=== PATIENT | female | born 1985 | race Caucasian/White ===

== ENCOUNTER 2017-05-07 13:52 | Outpatient (CLI) | payer MEDICAID ==
[2017-05-07 14:41] VITALS: BP 110/59
== END 2017-05-07 15:10 | disposition home or self-care (01) ==
LOC: LAB 13:52 → FBP 13:55 → LAB 15:10
PROVIDERS: ATTEND Obstetrics & Gynecology
DX: O99.89 Other specified diseases and conditions complicating pregnancy, childbirth and the puerperium (principal); R10.9 Unspecified abdominal pain; R42 Dizziness and giddiness; R50.9 Fever, unspecified; Z3A.24 24 weeks gestation of pregnancy
CPT/HCPCS: 99212

== ENCOUNTER 2017-05-07 15:07 | Emergency (ER) | payer MEDICAID ==
[2017-05-07] MEDS ORDERED: SODIUM CHLORIDE 0.9% 1,000 ML IV ONE (15:30)
--- NOTE | 2017-05-07 15:41 | ED Physician Documentation ---
History of Present Illness - Stated complaint Stated Complaint: FEVER/LIGHT HEADED - Chief complaint Chief Complaint: General - History obtained from History obtained from: Patient - History of Present Illness Timing: Other (This is a at 24 weeks gestation whose been nauseous with several episodes of vomiting over the last few days associated with rhinorrhea and fevers and chills but no body aches. No sick contacts or urinary complaints. No cough or abdominal pain. No diarrhea.) Review of Systems Ten Systems: 10 systems reviewed and negative Constitutional: reports: Fever, Chills, Fatigue. denies: Myalgias Nose: reports: Rhinorrhea / runny nose Throat: denies: Sore throat Respiratory: denies: Dyspnea, Cough GI: reports: Nausea, Vomiting. denies: Abdominal Pain, Diarrhea PD PAST MEDICAL HISTORY - Past Medical History Cardiovascular: Other Respiratory: Other Neuro: Headache/migraine Endocrine/Autoimmune: Other GI: None GLASSIE: None : None Psych: None Musculoskeletal: None Derm: None - Past Surgical History Past Surgical History: Yes /GLASSIE: Dilation and currettage - Present Medications Home Medications: Ambulatory Orders Medication Instructions Recorded Confirmed Pnv95/Ferrous Fumarate/FA 1 each PO DAILY 03/10/16 02/23/17 [ Formula] diphenhydrAMINE [Benadryl] 25 mg PO DAILY 02/23/17 02/23/17 Metoclopramide [Reglan] 10 mg PO Q6H PRN #20 tablet 05/07/17 Nitrofurantoin Monohyd/M-Cryst 1 tab PO BID 5 Days capsule 05/07/17 [Macrobid 100 mg Capsule] - Allergies Allergies/Adverse Reactions: Allergies Allergy/AdvReac Type Severity Reaction Status Date / Time Sulfa (Sulfonamide Allergy Unknown Verified 05/07/17 15:20 Antibiotics) ondansetron HCl * AdvReac Intermediate migraine Verified 05/07/17 15:20 [From Zofran] orajell Allergy Edema Uncoded 05/07/17 15:20 - Social History Does the pt smoke?: No Smoking Status: Never smoker Does the pt drink ETOH?: No Does the pt have substance abuse?: No - Immunizations Immunizations are current?: No Immunizations: TDAP >10years/unknown - POLST Patient has POLST: No PD ED PE NORMAL - Vitals Vital signs reviewed: Yes - General General: Alert and oriented X 3, No acute distress - HEENT HEENT: PERRL, EOMI, Ears normal, Moist mucous membranes, Pharynx benign - Neck Neck: Supple, no meningeal sign, No bony TTP - Cardiac Cardiac: RRR, No murmur - Respiratory Respiratory: No respiratory distress, Clear bilaterally - Abdomen Abdomen: Normal bowel sounds, Soft, Non tender - Back Back: No CVA TTP, No spinal TTP - Derm Derm: Normal color, Warm and dry - Extremities Extremities: No edema, No calf tenderness / cord - Neuro Neuro: Alert and oriented X 3, Normal speech - Psych Psych: Normal mood, Normal affect Results - Vitals Vitals: Vital Signs - 24 hr 05/07/17 15:15 Temperature 36.0 C L Heart Rate 100 Respiratory 18 Rate Blood Pressure 128/55 L O2 Saturation 98 Oxygen O2 Source Room air - Labs Labs: Laboratory Tests 05/07/17 05/07/17 05/07/17 15:39 15:45 16:43 Sodium 134 L Potassium 3.5 Chloride 104 Carbon Dioxide 22 Anion Gap 8.0 BUN 7 Creatinine 0.5 Estimated GFR (MDRD) 142 Glucose 87 Calcium 8.9 Total Bilirubin 0.6 AST 13 ALT 12 Alkaline Phosphatase 53 Total Protein 7.0 Albumin 3.2 Globulin 3.8 Albumin/Globulin Ratio 0.8 L Lipase 12 L Urine Color YELLOW Urine Clarity CLEAR Urine pH 6.0 Ur Specific [place] <=1.005 Urine Protein NEGATIVE Urine Glucose (UA) NEGATIVE Urine Ketones 15 H Urine Occult Blood NEGATIVE Urine Nitrite NEGATIVE Urine Bilirubin NEGATIVE Urine Urobilinogen 0.2 (NORMAL) Ur Leukocyte Esterase SMALL H Urine RBC 0-5 Urine WBC 4-5 Ur Squamous Epith Cells FEW Squamous Urine Bacteria Rare Urine Culture Comments INDICATED Influenza A (Rapid) Negative Influenza B (Rapid) Negative Influenza Types A,B Ag - PD MEDICAL DECISION MAKING - ED course ED course: She presents with what sounds like a viral illness in the setting of . Her vital signs are unremarkable. She was given IV fluids. She does have a UTI, but given the mildness of her symptoms signs on the urinalysis I suspect this is not the source of her illness. This was treated with Rocephin and Macrobid. No antiemetics here because she is driving allergic to Zofran but Reglan for home. Departure - Departure Disposition: Home, Self Care Clinical Impression: UTI (urinary tract infection) Qualifiers: Urinary tract infection type: acute cystitis Hematuria presence: without hematuria Qualified Code(s): N30.00 - Acute cystitis without hematuria Qualifiers: Weeks of gestation: 24 weeks Qualified Code(s): Z3A.24 - 24 weeks gestation of Vomiting Qualifiers: Vomiting type: unspecified Vomiting Intractability: non-intractable Nausea presence: with nausea Qualified Code(s): R11.2 - Nausea with vomiting, unspecified Condition: Good Instructions: ED Nausea Vomiting, ED UTI Cystitis Female Prescriptions: Metoclopramide [Reglan] 10 mg PO Q6H PRN #20 tablet PRN Reason: Nausea / Vomiting Nitrofurantoin Monohyd/M-Cryst [Macrobid 100 mg Capsule] 1 tab PO BID 5 Days capsule Comments: Call your doctor to arrange a follow-up appointment, make the next available appointment. In the interim, return anytime if worse or if new symptoms develop. We will culture your urine, the results should be done in 48-72 hours. If an antibiotic change is necessary we will call you. Return if worse in the meantime, especially if you develop increasing flank pain, fevers, or cannot keep down the medication.
[2017-05-07 15:57] LABS: ALBUMIN 3.2 g/dL (3.2-5.5); ALBUMIN/GLOBULIN RATIO 0.8 (1.0-2.2); BILIRUBIN,TOTAL 0.6 mg/dL (0.2-1.0); CALCIUM 8.9 mg/dL (8.5-10.3); CREATININE 0.5 mg/dL (0.4-1.0)
[2017-05-07 16:56] LABS: BILIRUBIN,URINE NEGATIVE (NEGATIVE); GLUCOSE, URINE (UA) NEGATIVE (NEGATIVE); KETONES,URINE (UA) 15 mg/dL (NEGATIVE); LEUKOCYTE ESTERASE, URINE SMALL (NEGATIVE); NITRITE,URINE NEGATIVE (NEGATIVE); OCCULT BLOOD,URINE NEGATIVE (NEGATIVE); PROTEIN,URINE NEGATIVE (NEGATIVE); UROBILINOGEN,URINE 0.2 (NORMAL) E.U./dL (NORMAL)
[2017-05-07 17:03] LABS: BACTERIA,URINE Rare /HPF (None Seen); CLARITY,URINE CLEAR (CLEAR); RBC,URINE 0-5 /HPF (0-5); SQUAMOUS EPITHELIAL CELL,UR FEW Squamous (<= Few)
[2017-05-07] MEDS ORDERED: cefTRIAXone 1 GM in SODIUM CHLORIDE 0.9% MINIBAG 100 ML IV STA (17:15)
[2017-05-07 18:16] VITALS: BP 124/60
== END 2017-05-07 18:17 | disposition home or self-care (01) ==
LOC: ED 15:07
DX: O23.12 Infections of bladder in pregnancy, second trimester (principal); N30.00 Acute cystitis without hematuria; O21.0 Mild hyperemesis gravidarum; Z3A.24 24 weeks gestation of pregnancy
CPT/HCPCS: 36415; 80053; 81001; 83690; 87086; 87275; 87276; 96361; 96365; 99212; 99283

== ENCOUNTER 2018-08-03 17:53 | Emergency (ER) | payer MEDICAID ==
[2018-08-03 18:14] LABS: BILIRUBIN,URINE NEGATIVE (NEGATIVE); CLARITY,URINE HAZY (CLEAR); GLUCOSE, URINE (UA) NEGATIVE (NEGATIVE); HCG UR QUAL NEGATIVE; KETONES,URINE (UA) NEGATIVE (NEGATIVE); LEUKOCYTE ESTERASE, URINE SMALL (NEGATIVE); NITRITE,URINE NEGATIVE (NEGATIVE); OCCULT BLOOD,URINE LARGE (NEGATIVE); PH,URINE 6.5 PH (5.0-7.5); PROTEIN,URINE 30 mg/dL (NEGATIVE); UROBILINOGEN,URINE 0.2 (NORMAL) E.U./dL (NORMAL)
[2018-08-03 18:23] LABS: BACTERIA,URINE None Seen /HPF (None Seen); RBC,URINE TNTC /HPF (0-5); SQUAMOUS EPITHELIAL CELL,UR NONE SEEN (<= Few)
--- NOTE | 2018-08-03 18:45 | ED Physician Documentation ---
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 : None Psych: None Musculoskeletal: None Derm: None - Past Surgical History Past Surgical History: Yes /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: Dilation and currettage - Present Medications Home Medications: Ambulatory Orders Medication Instructions Recorded Confirmed diphenhydrAMINE [Benadryl] 25 mg PO DAILY 02/23/17 07/19/18 Metoclopramide [Reglan] 10 mg PO Q6H PRN #20 tablet 05/07/17 07/19/18 Ciprofloxacin HCl [Cipro] 500 mg PO BID #14 tablet 08/03/18 - Allergies Allergies/Adverse Reactions: Allergies Allergy/AdvReac Type Severity Reaction Status Date / Time Sulfa (Sulfonamide Allergy Unknown Verified 08/03/18 18:05 Antibiotics) ondansetron HCl * AdvReac Intermediate migraine Verified 08/03/18 18:05 [From Zofran] orajell Allergy Edema Uncoded 08/03/18 18:05 - Social History Does the pt smoke?: No Smoking Status: Never smoker Does the pt drink ETOH?: No Does the pt have substance abuse?: No - Immunizations Immunizations are current?: No Immunizations: TDAP >10years/unknown - POLST Patient has POLST: No PD ED PE NORMAL - Vitals Vital signs reviewed: Yes - General General: Alert and oriented X 3, No acute distress - Abdomen Abdomen: Normal bowel sounds, Soft, Non tender - Back Back: No CVA TTP, No spinal TTP - Neuro Neuro: Alert and oriented X 3, Normal speech Results - Vitals Vitals: Vital Signs - 24 hr 08/03/18 08/03/18 18:03 20:09 Temperature 36.9 C 36.8 C Heart Rate 93 103 H Respiratory 16 16 Rate Blood Pressure 123/70 126/73 O2 Saturation 97 97 Oxygen O2 Source Room air - Labs Labs: Laboratory Tests 08/03/18 08/03/18 08/03/18 18:00 18:55 18:55 WBC 8.2 RBC 4.58 Hgb 12.7 Hct 37.3 MCV 81.4 MCH 27.7 MCHC 34.1 RDW 15.0 Plt Count 239 MPV 7.9 Neut # (Auto) 6.0 Lymph # (Auto) 1.5 Cedar # (Auto) 0.6 Eos # (Auto) 0.1 Baso # (Auto) 0.0 Absolute Nucleated RBC 0.00 Nucleated RBC % 0.0 Sodium 137 Potassium 3.4 L Chloride 104 Carbon Dioxide 25 Anion Gap 8.0 BUN 14 Creatinine 0.6 Estimated GFR (MDRD) 114 Glucose 88 Calcium 9.1 Total Bilirubin 0.8 AST 12 ALT 12 Alkaline Phosphatase 53 Total Protein 7.5 Albumin 4.2 Globulin 3.3 Albumin/Globulin Ratio 1.3 Lipase 28 Urine Color YELLOW Urine Clarity HAZY Urine pH 6.5 Ur Specific [place] 1.025 Urine Protein 30 H Urine Glucose (UA) NEGATIVE Urine Ketones NEGATIVE Urine Occult Blood LARGE H Urine Nitrite NEGATIVE Urine Bilirubin NEGATIVE Urine Urobilinogen 0.2 (NORMAL) Ur Leukocyte Esterase SMALL H Urine RBC TNTC H Urine WBC >25 H Ur Squamous Epith Cells NONE SEEN Urine Bacteria None Seen Ur Microscopic Review INDICATED Urine Culture Comments INDICATED Urine HCG, Qual NEGATIVE - Rads (name of study) Ct a/p Radiology: EMP read contemporaneously (normal) PD MEDICAL DECISION MAKING - ED course ED course: 32-year-old woman with ongoing right flank pain, could be renal colic, but now With more complaints consistent with UTI. Her urinalysis had a lot of blood but also signs of infection so we looked for stone with CT and this was negative And she was treated with Cipro. Departure - Departure Disposition: 01 Home, Self Care Clinical Impression: Pyelonephritis Condition: Good Record reviewed to determine appropriate education?: Yes Instructions: Pyelonephritis Dc Prescriptions: Ciprofloxacin HCl [Cipro] 500 mg PO BID #14 tablet Comments: We will culture your urine, the results should be done in 48-72 hours. If an antibiotic change is necessary we will call you. Return if worse in the meantime, especially if you develop increasing flank pain, fevers, or cannot keep down the medication. Discharge Date/Time: 08/03/18 20:10
[2018-08-03 19:01] LABS: BASOPHILS % (AUTO) 0.6 %; EOSINOPHILS # (AUTO) 0.1 10^3/uL (0.0-0.7); EOSINOPHILS % (AUTO) 1.1 %; HGB - HEMOGLOBIN 12.7 g/dL (12.0-16.0); LYMPHOCYTES # (AUTO) 1.5 10^3/uL (1.5-3.5); MEAN CORPUSCULAR HEMOGLOBIN 27.7 pg (27.0-31.0); MEAN CORPUSCULAR HGB CONC 34.1 g/dL (32.0-36.0); MEAN CORPUSCULAR VOLUME 81.4 fL (81.0-99.0); MEAN PLATELET VOLUME 7.9 fL (7.9-10.8); MONOCYTES # (AUTO) 0.6 10^3/uL (0.0-1.0); MONOCYTES % (AUTO) 7.2 %; NEUTROPHILS % (AUTO) 73.1 %; PLT - PLATELET COUNT 239 10^3/uL (130-450); RED BLOOD COUNT 4.58 10^6/uL (4.20-5.40); WHITE BLOOD COUNT 8.2 x10^3/uL (4.8-10.8)
[2018-08-03 19:28] LABS: ALBUMIN 4.2 g/dL (3.2-5.5); ALBUMIN/GLOBULIN RATIO 1.3 (1.0-2.2); BILIRUBIN,TOTAL 0.8 mg/dL (0.2-1.0); CALCIUM 9.1 mg/dL (8.5-10.3); CREATININE 0.6 mg/dL (0.4-1.0); TOTAL PROTEIN 7.5 g/dL (6.7-8.2)
--- NOTE | 2018-08-03 19:40 | CT Report ---
Reason: r FLANK PAIN HEMATURIA Procedure Date: 08/03/2018 Accession Number: [id number] / [id number] Procedure: CT - Abdomen/Pelvis WO CPT Code: FULL RESULT: EXAM: CT ABDOMEN AND PELVIS (CT KUB) EXAM DATE: 08/03/2018 07:19 PM. CLINICAL HISTORY: R FLANK PAIN HEMATURIA. COMPARISONS: None. TECHNIQUE: Routine helical CT imaging was performed through the abdomen and pelvis without intravenous contrast. Lack of intravenous contrast can at times limit scan sensitivity, particularly for the detection of intraparenchymal and vascular pathology. Reconstructions: Coronal and sagittal. In accordance with CT protocol optimization, one or more of the following dose reduction techniques were utilized for this exam: automated exposure control, adjustment of mA and/or KV based on patient size, or use of iterative reconstructive technique. FINDINGS: ABDOMEN: Lung Bases: Incompletely included lower lungs are grossly clear. Heart size is within normal limits. No basilar effusions. Liver: Unremarkable. Gallbladder/Bile Ducts: Gallbladder is unremarkable. Visualized biliary tree is normal caliber. Spleen: Unremarkable. Pancreas: Unremarkable. Adrenal Glands: Unremarkable. Kidneys: No calculi or hydronephrosis. Peritoneum/Mesentery/Bowel: No free fluid, free air, or collection. No intestinal obstruction or inflammation. The appendix is within normal limits. Lymph nodes: No mesenteric, periportal, or retroperitoneal lymphadenopathy. PELVIS: The bladder is unremarkable for the degree of distention. IUD present within the uterus. No pelvic lymphadenopathy. Retroperitoneum: Abdominal aorta is nonaneurysmal. Bones: No suspicious osseous lesions. IMPRESSION: No acute unenhanced abnormalities. No renal calculi or hydronephrosis. RADIA
[2018-08-03] MEDS ORDERED: CIPROFLOXACIN 250 MG TABLET PO STA (19:58)
[2018-08-03 20:11] VITALS: BP 126/73
== END 2018-08-03 20:10 | disposition home or self-care (01) ==
LOC: ED 17:53
DX: N12 Tubulo-interstitial nephritis, not specified as acute or chronic (principal); Z85.72 Personal history of non-Hodgkin lymphomas
CPT/HCPCS: 36415; 74176; 80053; 81001; 81025; 83690; 85025; 87086; 87181; 99283; A9270; 81003

== ENCOUNTER 2018-08-23 15:11 | Emergency (ER) | payer MEDICAID ==
[2018-08-23 16:16] LABS: BILIRUBIN,URINE NEGATIVE (NEGATIVE); GLUCOSE, URINE (UA) NEGATIVE (NEGATIVE); KETONES,URINE (UA) NEGATIVE (NEGATIVE); LEUKOCYTE ESTERASE, URINE SMALL (NEGATIVE); NITRITE,URINE POSITIVE (NEGATIVE); OCCULT BLOOD,URINE LARGE (NEGATIVE); PROTEIN,URINE 100 mg/dL (NEGATIVE); UROBILINOGEN,URINE 0.2 (NORMAL) E.U./dL (NORMAL)
[2018-08-23 16:19] LABS: CLARITY,URINE CLOUDY (CLEAR); HCG UR QUAL NEGATIVE
[2018-08-23 16:22] LABS: WBC CLUMPS,URINE PRESENT
[2018-08-23 16:23] LABS: BACTERIA,URINE Many /HPF (None Seen); SQUAMOUS EPITHELIAL CELL,UR NONE SEEN (<= Few)
--- NOTE | 2018-08-23 16:28 | ED Physician Documentation ---
History of Present Illness - Stated complaint Stated Complaint: BACK PX - Chief complaint Chief Complaint: UTI - History obtained from History obtained from: Patient - History of Present Illness Timing: How many days ago (several) Pain level max: 8 Pain level now: 8 - Additonal information Additional information: 32-year-old female presents to the emergency department with dysuria for the past several days, now pain up into the left flank. Has had nausea but no vomiting. No fevers. Similar to prior episodes of pyelonephritis. Nothing makes it better or worse. Has not taken anything for this. 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 HEENT: None Psych: None Musculoskeletal: None Derm: None - Past Surgical History Past Surgical History: Yes /SHAFT REPAIRER: Dilation and currettage - Present Medications Home Medications: Ambulatory Orders Medication Instructions Recorded Confirmed Cefdinir 300 mg PO BID #20 capsule 08/23/18 Hydrocodone/Acetaminophen 1 - 2 each PO Q6H PRN #14 tablet 08/23/18 [Hydrocodon-Acetaminophen 5-325] - Allergies Allergies/Adverse Reactions: Allergies Allergy/AdvReac Type Severity Reaction Status Date / Time Sulfa (Sulfonamide Allergy Unknown Verified 08/23/18 15:49 Antibiotics) ondansetron HCl * AdvReac Intermediate migraine Verified 08/23/18 15:49 [From Zofran] orajell Allergy Edema Uncoded 08/03/18 18:05 - Social History Does the pt smoke?: No Smoking Status: Never smoker Does the pt drink ETOH?: No Does the pt have substance abuse?: No - Immunizations Immunizations are current?: Yes Immunizations: TDAP >10years/unknown - POLST Patient has POLST: No PD ED PE NORMAL - Vitals Vital signs reviewed: Yes - General General: Alert and oriented X 3, No acute distress, Well developed/nourished - HEENT HEENT: Moist mucous membranes - Neck Neck: Supple, no meningeal sign - Cardiac Cardiac: RRR, Strong equal pulses - Respiratory Respiratory: No respiratory distress, Clear bilaterally - Abdomen Abdomen: Soft, Non tender, Non distended - Back Back: No spinal TTP, Other (Mild left CVA tenderness) - Derm Derm: Warm and dry - Neuro Neuro: Alert and oriented X 3 - Psych Psych: Normal mood, Normal affect Results - Vitals Vitals: Vital Signs - 24 hr 08/23/18 15:47 Temperature 37 C Heart Rate 106 H Respiratory 18 Rate Blood Pressure 104/57 L O2 Saturation 97 Oxygen O2 Source Room air - Labs Labs: Laboratory Tests 08/23/18 16:00 Urine Color YELLOW Urine Clarity CLOUDY Urine pH 6.0 Ur Specific [place] 1.020 Urine Protein 100 H Urine Glucose (UA) NEGATIVE Urine Ketones NEGATIVE Urine Occult Blood LARGE H Urine Nitrite POSITIVE H Urine Bilirubin NEGATIVE Urine Urobilinogen 0.2 (NORMAL) Ur Leukocyte Esterase SMALL H Urine RBC 11-25 H Urine WBC >25 H Urine WBC Clumps PRESENT Ur Squamous Epith Cells NONE SEEN Urine Bacteria Many H Ur Microscopic Review INDICATED Urine Culture Comments INDICATED Urine HCG, Qual NEGATIVE PD MEDICAL DECISION MAKING - ED course Complexity details: reviewed results, re-evaluated patient, considered differential, d/w patient ED course: 32-year-old female with what appears to be a UTI and likely pyelonephritis. Will place on Cefdinir. Will also place on pain medication for home. We will have her follow-up with her doctor for further evaluation and care. Patient is well-appearing, nontoxic. Patient counseled regarding signs and symptoms for which I believe and urgent re-evaluation would be necessary. Patient with good understanding of and agreement to plan and is comfortable going home at this time This document was made in part using voice recognition software. While efforts are made to proofread this document, sound alike and grammatical errors may occur. Prior microbiology results were reviewed Departure - Departure Disposition: Home, Self Care Clinical Impression: Pyelonephritis Condition: Good Instructions: ED Kidney Infec Female Follow-Up: your,doctor in 3 days if not better [Other] Prescriptions: Cefdinir 300 mg PO BID #20 capsule Hydrocodone/Acetaminophen [Hydrocodon-Acetaminophen 5-325] 1 - 2 each PO Q6H PRN #14 tablet PRN Reason: pain Comments: Take all antibiotics until gone. Return if you worsen. Follow-up with your doctor for further evaluation and care. Do not drink alcohol or drive while on narcotic pain medicine. Note that many narcotic pain relievers also contain tylenol/acetaminophen. Please ensure that your total dose of acetaminophen from all sources does not exceed 3 grams (3000mg) per day. You may constipated on this medication, take a stool softener such as "Colace" twice a day while you are on it. Also recommend a [id number]-prn-[id number] laxative such as senna or MiraLAX any day that you do not have a bowel movement. If you received narcotic pain medication in the emergency department, do not drive or operate machinery for the next 24 hours.
[2018-08-23 16:44] VITALS: BP 138/52
== END 2018-08-23 16:44 | disposition home or self-care (01) ==
LOC: ED 15:11
DX: N12 Tubulo-interstitial nephritis, not specified as acute or chronic (principal)
CPT/HCPCS: 81001; 81003; 81025; 87086; 87181; 99283

== ENCOUNTER 2020-05-24 12:59 | Emergency (ER) | payer MEDICAID ==
--- NOTE | 2020-05-24 14:30 | ED Physician Documentation ---
History of Present Illness - Stated complaint Stated Complaint: L ARM NUMBNESS - Chief complaint Chief Complaint: General - History obtained from History obtained from: Patient - Additonal information Additional information: 34-year-old woman with remote history of resolved lymphoma, migraine headaches. She developed a worse than normal and longer than normal migraine back 6 weeks ago. It lasted for 3 weeks. It is gone now. The quality and location was similar to prior migraines but the intensity and longitude but he was worse and longer than usual. When the migraine went away she developed left shoulder pain and that has been persistent since and worse with motion. Today she noted her left arm to be numb and tingly. 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 and currettage - Present Medications Home Medications: Ambulatory Orders Medication Instructions Recorded Confirmed predniSONE [Deltasone] 20 mg PO [id number] #21 tab 05/24/20 - Allergies Allergies/Adverse Reactions: Allergies Allergy/AdvReac Type Severity Reaction Status Date / Time Sulfa (Sulfonamide Allergy Unknown Verified 05/24/20 13:15 Antibiotics) ondansetron HCl * AdvReac Intermediate migraine Verified 05/24/20 13:15 [From Zofran] orajell Allergy Edema Uncoded 05/24/20 13:15 - Social History Does the pt smoke?: No Smoking Status: Never smoker Does the pt drink ETOH?: No Does the pt have substance abuse?: No - Immunizations Immunizations are current?: Yes Immunizations: TDAP >10years/unknown - POLST Patient has POLST: No PD ED PE NORMAL - Vitals Vital signs reviewed: Yes - General General: Alert and oriented X 3, No acute distress - HEENT HEENT: PERRL, EOMI - Neck Neck: Other (No midline or peripheral neck tenderness) - Extremities Extremities: Other (see MDM - text box too small) - Neuro Neuro: Alert and oriented X 3, Normal speech Results - Vitals Vitals: Vital Signs - 24 hr 05/24/20 05/24/20 13:09 13:15 Temperature 36.4 C L 36.5 C Heart Rate 86 86 Respiratory 16 16 Rate Blood Pressure 138/77 H 138/77 H O2 Saturation 98 98 Oxygen O2 Source Room air - Rads (name of study) Ct head Radiology: EMP read contemporaneously (normal) L shoulder XR Radiology: EMP read contemporaneously (normal) PD MEDICAL DECISION MAKING - ED course ED course: LUE exam: She can only abduct the shoulder to 90 degrees before getting pain. She notes increased numbness and tingling in the left arm with palpation across the top of the scapula posteriorly. 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 Intact wrist flexion, and thumb extension on the left. Slightly diminished sensation on the dorsum of the hand, both sides, and medial forearm, symmetric sensation on both sides to the elbows and deltoids. 34-year-old woman with paresthesias and some weakness in the left arm. The exam and distribution most consistent with a radiculopathy, that said intracranial recurrence of lymphoma also considered but CT head was negative for same. Will treat with steroids. Departure - Departure Disposition: 01 Home, Self Care Clinical Impression: Arm paresthesia, left, Acute pain of left shoulder Condition: Good Record reviewed to determine appropriate education?: Yes Instructions: ED Cervical Radiculopathy Prescriptions: predniSONE [Deltasone] 20 mg PO [id number] #21 tab Comments: As discussed, examination and history most consistent with a pinched nerve in the shoulder neck. CT of the head and x-ray of the shoulder were normal. The steroid should help. Follow-up with your doctor regardless and return if worse.
--- NOTE | 2020-05-24 15:01 | CT Report ---
PROCEDURE: HEAD WO INDICATIONS: L arm weak/numb TECHNIQUE: Noncontrast 4.5 mm thick angled axial sections acquired from the foramen magnum to the vertex. For r adiation dose reduction, the following was used: automated exposure control, adjustment of mA and/or kV according to patient size. COMPARISON: None. FINDINGS: Image quality: Excellent. CSF spaces: Basal cisterns are patent. No extra-axial fluid collections. Ventricles are normal in size and shape. Brain: No midline shift. No intracranial masses or hemorrhage. Sanchez-white matter interface is norm al. Skull and face: Calvarium and visualized facial bones are intact, without suspicious lesions. Sinuses: Visualized sinuses and mastoids are clear. IMPRESSION: No acute intracranial abnormality. Reviewed by: Khang Gutierrez MD on 05/24/2020 3:00 PM PST Approved by: Khang Gutierrez MD on 05/24/2020 3:00 PM [facility] Station ID: [id number]
--- NOTE | 2020-05-24 15:07 | XRAY Report ---
PROCEDURE: Shoulder 3 View LT INDICATIONS: shoulder pain TECHNIQUE: 3 views of the shoulder were acquired. COMPARISON: None. FINDINGS: Bones: No fractures or dislocations. No suspicious bony lesions. Visualized ribs appear intact. Soft tissues: No suspicious soft tissue calcifications. IMPRESSION: No visualized acute fracture or dislocation. However, occult injury cannot be excluded. Recommend short interval imaging follow-up in 7-10 days as clinically indicated for additional evalua tion. Reviewed by: Lorraine Allen MD on 05/24/2020 3:05 PM [facility] Approved by: Lorraine Allen MD on 05/24/2020 3:05 PM [facility] Station ID: [id number]
[2020-05-24 15:15] VITALS: BP 130/72
== END 2020-05-24 15:14 | disposition home or self-care (01) ==
LOC: ED 12:59
DX: R20.0 Anesthesia of skin (principal); M25.512 Pain in left shoulder
CPT/HCPCS: 99284

== ENCOUNTER 2020-07-04 08:00 | Outpatient (CLI) | payer MEDICAID ==
[2020-07-04 12:20] LABS: ESTIMATED AVERAGE GLUCOSE 105 mg/dL (70-100); HEMOGLOBIN A1c% 5.3 % (4.27-6.07)
[2020-07-04 12:33] LABS: ALBUMIN 4.1 g/dL (3.2-5.5); ALBUMIN/GLOBULIN RATIO 1.3 (1.0-2.2); ALKALINE PHOSPHATASE 39 IU/L (42-121); ALT ALANINE AMINOTRANSFERASE 11 IU/L (10-60); AST ASPARTATE AMINOTRANSFERASE 13 IU/L (10-42); BILIRUBIN,TOTAL 0.9 mg/dL (0.2-1.0); BUN - BLOOD UREA NITROGEN 10 mg/dL (6-20); CALCIUM 9.5 mg/dL (8.5-10.3); CARBON DIOXIDE - CO2 25 mmol/L (21-32); CHLORIDE 105 mmol/L (101-111); CHOL/HDL RATIO 3.5 (<4.4); CHOLESTEROL 191 mg/dL; CREATININE 0.6 mg/dL (0.4-1.0); GFR - MDRD 113 (>89); GLUCOSE 94 mg/dL (70-100); HDL CHOLESTEROL 54 mg/dL; LDL CHOLESTEROL,CALCULATED 123 mg/dL; LDL/HDL RATIO 2.3 (<4.4); POTASSIUM 3.9 mmol/L (3.5-5.0); SODIUM 137 mmol/L (135-145); TOTAL PROTEIN 7.3 g/dL (6.7-8.2); TRIGLYCERIDES 70 mg/dL; VLDL CHOLESTEROL 14 mg/dL
[2020-07-04 12:35] LABS: BASOPHILS # (AUTO) 0.1 10^3/uL (0.0-0.1); BASOPHILS % (AUTO) 0.8 %; EOSINOPHILS # (AUTO) 0.1 10^3/uL (0.0-0.7); EOSINOPHILS % (AUTO) 1.1 %; HCT - HEMATOCRIT 41.8 % (37.0-47.0); HGB - HEMOGLOBIN 13.5 g/dL (12.0-16.0); LYMPHOCYTES # (AUTO) 1.3 10^3/uL (1.5-3.5); MEAN CORPUSCULAR HEMOGLOBIN 28.1 pg (27.0-31.0); MEAN CORPUSCULAR HGB CONC 32.3 g/dL (32.0-36.0); MEAN CORPUSCULAR VOLUME 87.1 fL (81.0-99.0); MEAN PLATELET VOLUME 10.7 fL (7.9-10.8); MONOCYTES # (AUTO) 0.5 10^3/uL (0.0-1.0); MONOCYTES % (AUTO) 7.8 %; NEUTROPHILS # (AUTO) 4.4 10^3/uL (1.5-6.6); NEUTROPHILS % (AUTO) 70.1 %; PLT - PLATELET COUNT 330 10^3/uL (130-450); RED CELL DISTRIBUTION WIDTH 13.2 % (12.0-15.0); WHITE BLOOD COUNT 6.3 x10^3/uL (4.8-10.8)
[2020-07-04 12:36] LABS: THYROID STIMULATING HORMONE 3.9 uIU/mL (0.34-5.60)
== END 2020-07-04 23:59 | disposition home or self-care (01) ==
LOC: LAB.WCP 08:00
PROVIDERS: ATTEND Nurse Practitioner Family
DX: Z00.00 Encounter for general adult medical examination without abnormal findings (principal); R73.9 Hyperglycemia, unspecified
CPT/HCPCS: 36415; 80050; 80061; 83036; 83721

== ENCOUNTER 2021-09-15 08:03 | Emergency (ER) | payer MEDICAID ==
[2021-09-15 08:14] VITALS: BP 113/74
--- NOTE | 2021-09-15 08:21 | ED Physician Documentation ---
PD HPI HEENT - Stated complaint Stated Complaint: RT SIDE FACE PX - Chief complaint Chief Complaint: Heent - History obtained from History obtained from: Patient - History of Present Illness Timing - onset: How many days ago (has had some nasal congestion and sinus pressure for several days or more, with some congestion from allergies for 1-2 weeks. Last night, started to have much increased pain/pressure right face and right ear. Green/yellow nasal drainage. Feverish.) Timing - duration: Days Timing - details: Gradual onset, Still present Location: Right ear, Other (right sinuses/face) Associated symptoms: Fever, Congestion. No: Unable to swallow, Facial swelling (but facial pain maxillary and around right eye areas. Not light sensitive.), Cough Review of Systems Constitutional: reports: Fever. denies: Chills, Myalgias Ears: reports: Ear pain (right) Nose: reports: Congestion, Sinus pressure / pain. 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: Dilation and currettage - Present Medications Home Medications: Ambulatory Orders Medication Instructions Recorded Confirmed Cetirizine [ZyrTEC] 10 mg PO BID #15 tablet 09/15/21 HYDROcod/ACETAM 5/325 [[place] 5/325] 1 ea PO Q6H PRN #10 tablet 09/15/21 Naproxen 250 mg PO TID 7 Days #20 tablet 09/15/21 cephALEXin [Keflex] 500 mg PO TID #20 cap 09/15/21 - Allergies Allergies/Adverse Reactions: Allergies Allergy/AdvReac Type Severity Reaction Status Date / Time Sulfa (Sulfonamide Allergy Unknown Verified 08/13/20 15:48 Antibiotics) ondansetron HCl * AdvReac Intermediate migraine Verified 08/13/20 15:48 [From Zofran] orajell Allergy Edema Uncoded 08/13/20 15:48 - Social History Does the pt smoke?: No Smoking Status: Never smoker Does the pt drink ETOH?: No Does the pt have substance abuse?: No - Immunizations Immunizations are current?: Yes Immunizations: TDAP >10years/unknown - POLST Patient has POLST: No PD ED PE NORMAL - Vitals Vital signs reviewed: Yes - General General: Alert and oriented X 3, Well developed/nourished - HEENT HEENT: Moist mucous membranes, Pharynx benign, Other (right maxillary area tender to percussion. Right mastoids not tender. ). No: Ears normal (left is normal. RIght with fluid/pressure behind tm and moerate redness. No purulence noted.) - Neck Neck: Supple, no meningeal sign, No adenopathy - Cardiac Cardiac: RRR, No murmur - Respiratory Respiratory: Clear bilaterally Results - Vitals Vitals: Vital Signs - 24 hr 09/15/21 08:12 Temperature 36.7 C Heart Rate 87 Respiratory 18 Rate Blood Pressure 113/74 O2 Saturation 98 Oxygen O2 Source Room air Departure - Departure Disposition: Home, Self Care Clinical Impression: Acute sinusitis Qualifiers: Sinusitis location: ethmoidal Recurrence: non-recurrent Qualified Code(s): J01.20 - Acute ethmoidal sinusitis, unspecified Condition: Stable Record reviewed to determine appropriate education?: Yes Instructions: ED Sinusitis Abx Tx Follow-Up: Citlalli Morales ARNP [Primary Care Provider] - Prescriptions: cephALEXin [Keflex] 500 mg PO TID #20 cap Naproxen 250 mg PO TID 7 Days #20 tablet HYDROcod/ACETAM 5/325 [[place] 5/325] 1 ea PO Q6H PRN #10 tablet PRN Reason: Pain Cetirizine [ZyrTEC] 10 mg PO BID #15 tablet Comments: This does sound like a sinus infection. There is some signs of redness and fluid behind the right eardrum as well. The eustachian tube/middle ear connects and drains into the sinus area so can be clogged by extension. We can treat this with anti-inflammatories and antihistamines and antibiotics. Add Tylenol every 4-6 hours if needed for pain or hydrocodone/acetaminophen if needed for worse pain in the short-term. I would anticipate improvement over the next few days and resolution by 3 to 5 days. I transmitted your prescriptions to [facility] pharmacy in [place]. I am prescribing a short course of narcotic pain medication for you. These are potentially dangerous and addictive medications that should be used carefully. These medications may constipate you. Take an aluh-roi-naixgco stool softener such as docusate twice daily with plenty of water while taking these medications. If you go 24 hours without a bowel movement, take [id number] MiraLAX, per package instructions. Do not drink or drive while taking these medications. If you received narcotic or sedating medications while in the emergency department do not drive for 24 hours. Store this medication in a safe, secure place and out of reach of children. It is a violation of federal law to give or sell this medication to another person or to use in a manner other than prescribed. The ED will not refill narcotic prescriptions, including prescriptions lost or stolen. You can dispose of unwanted medications at the [facility]'s office or at several pharmacies such as [facility]. Discharge Date/Time: 09/15/21 09:00
[2021-09-15] MEDS ORDERED: CETIRIZINE 10 MG TABLET PO STA (08:33)
[2021-09-15] MEDS ORDERED: DEXAMETHASONE 10 MG/ML VIAL PO STA (08:33)
[2021-09-15] MEDS ORDERED: CHERRY SYRUP 10 ML UDC PO ONE (08:33)
[2021-09-15] MEDS ORDERED: cephALEXin 250 MG CAPSULE PO STA (08:33)
[2021-09-15] MEDS ORDERED: ACETAMINOPHEN 325 MG TABLET PO STA (08:34)
== END 2021-09-15 09:00 | disposition home or self-care (01) ==
LOC: ED 08:03
DX: J01.20 Acute ethmoidal sinusitis, unspecified (principal)
CPT/HCPCS: 99282; 99284; A9270

== ENCOUNTER 2021-09-17 13:26 | Outpatient (CLI) | payer MEDICAID ==
--- NOTE | 2021-09-18 08:57 | Mammography Report ---
BILATERAL DIGITAL SCREENING MAMMOGRAM 3D/2D: 09/17/2021 CLINICAL: Baseline exam Routine screening. No prior exams were available for comparison. The tissue of both breasts is extremely dense, which l owers the sensitivity of mammography. No significant masses, calcifications, or other findings are seen in either breast. IMPRESSION: NEGATIVE There is no mammographic evidence of malignancy. A 1 year screening mammogram is recommended. This exam was interpreted at Station ID: [id number]. NOTE: For mammograms, a report in lay terms will be sent to the patient. Approximately 15% of breast malignancies will not be visualized mammographically. In the management of a palpable breast mass, a negative mammogram must not discourage biopsy of a clinically suspicious lesion. Electronically Signed By: Khang Gutierrez M.D., jr/alejandra:09/17/2021 15:08:50 ACR BI-RADS Category 1: Negative 3341F PARENCHYMAL PATTERN: (VD) - The breast(s) demonstrate(s) extremely dense parenchyma, limiting the sen sitivity of mammography. BI-RADS CATEGORY: (1) - 1 RECOMMENDATION: (ANNUAL) - Recommend routine annual screening mammography. [id number] 1 year screening LATERALITY: (B)
== END 2021-09-17 13:27 | disposition home or self-care (01) ==
LOC: DI.N 13:26
PROVIDERS: ATTEND Nurse Practitioner
DX: Z12.31 Encounter for screening mammogram for malignant neoplasm of breast (principal); Z85.71 Personal history of Hodgkin lymphoma

== ENCOUNTER 2022-03-09 11:05 | Emergency (ER) | payer MEDICAID ==
[2022-03-09 12:17] LABS: B. PARAPERTUSSIS- RESP PCR PAN NOT DETECTED; B. PERTUSSIS- RESP PCR PANEL NOT DETECTED; C. PNEUMONIAE- RESP PCR PANEL NOT DETECTED; CORONAVIRUS 229E-RESP PCR NOT DETECTED; CORONAVIRUS HKU1-RESP PCR NOT DETECTED; CORONAVIRUS NL63-RESP PCR NOT DETECTED; CORONAVIRUS OC43-RESP PCR NOT DETECTED; HUMAN METAPNEUMOVIRUS NOT DETECTED; INFLUENZA A H3- RESP PCR PANEL DETECTED; INFLUENZA B - RESP PCR PANEL NOT DETECTED; M. PNEUMONIAE- RESP PCR PANEL NOT DETECTED; PARAINFLUENZA VIRUS 1 NOT DETECTED; PARAINFLUENZA VIRUS 2 NOT DETECTED; PARAINFLUENZA VIRUS 3 NOT DETECTED; PARAINFLUENZA VIRUS 4 NOT DETECTED; RHINOVIRUS/ENTEROVIRUS NOT DETECTED; RSV- RESP PCR PANEL NOT DETECTED; SARS-CoV-2 -RESP PCR PANEL NOT DETECTED
[2022-03-09] MEDS ORDERED: ALBUTEROL NEB 2.5 MG/3 ML INH STA (13:12)
--- NOTE | 2022-03-09 13:26 | ED Physician Documentation ---
History of Present Illness - Stated complaint Stated Complaint: SOA - Chief complaint Chief Complaint: Resp - History obtained from History obtained from: Patient - History of Present Illness Timing: How many days ago (2) Pain level max: 4 Pain level now: 3 - Additonal information Additional information: Patient is a 36-year-old female whose entire family has been sick with influenza A. She started becoming sick 2 days ago. Increasing coughing. Has used inhalers in the past but does not have one now. Feels increasingly short of breath. Denies any possibility of . Cough is dry. Has rhinorrhea, congestion and sore throat as well. No vomiting. No diarrhea. 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 and currettage - Present Medications Home Medications: Ambulatory Orders Medication Instructions Recorded Confirmed Cetirizine [ZyrTEC] 10 mg PO BID #15 tablet 09/15/21 HYDROcod/ACETAM 5/325 [[place] 5/325] 1 ea PO Q6H PRN #10 tablet 09/15/21 Naproxen 250 mg PO TID 7 Days #20 tablet 09/15/21 cephALEXin [Keflex] 500 mg PO TID #20 cap 09/15/21 Albuterol Sulf [Ventolin Hfa 1 - 2 puffs INH Q4HR PRN #1 each 03/09/22 Inhaler] Baloxavir Marboxil [Xofluza] 80 mg PO ONCE #1 tablet 03/09/22 Benzonatate [Tessalon] 200 mg PO TID PRN #30 cap 03/09/22 - Allergies Allergies/Adverse Reactions: Allergies Allergy/AdvReac Type Severity Reaction Status Date / Time Sulfa (Sulfonamide Allergy Unknown Verified 03/09/22 11:14 Antibiotics) ondansetron HCl * AdvReac Intermediate migraine Verified 03/09/22 11:14 [From Zofran] orajell Allergy Edema Uncoded 03/09/22 11:14 - Social History Does the pt smoke?: No Smoking Status: Never smoker Does the pt drink ETOH?: No Does the pt have substance abuse?: No - Immunizations Immunizations are current?: Yes Immunizations: TDAP >10years/unknown - POLST Patient has POLST: No PD ED PE NORMAL - Vitals Vital signs reviewed: Yes - General General: Alert and oriented X 3, No acute distress - HEENT HEENT: PERRL, Ears normal, Moist mucous membranes, Pharynx benign - Neck Neck: Supple, no meningeal sign - Cardiac Cardiac: RRR, Strong equal pulses - Respiratory Respiratory: No respiratory distress, Other (Mild wheezing bilaterally) - Abdomen Abdomen: Soft, Non tender, Non distended - Derm Derm: Warm and dry - Extremities Extremities: No edema - Neuro Neuro: Alert and oriented X 3 - Psych Psych: Normal mood, Normal affect Results - Vitals Vitals: Vital Signs - 24 hr 03/09/22 11:10 Temperature 36.3 C L Heart Rate 106 H Respiratory 16 Rate Blood Pressure 131/85 H O2 Saturation 96 Oxygen O2 Source Room air - Labs Labs: Laboratory Tests 03/09/22 11:16 Nasal Adenovirus (PCR) NOT DETECTED Nasal B. parapertussis DNA (PCR) NOT DETECTED Nasal Coronavir 229E PCR NOT DETECTED Nasal Coronavir HKU1 PCR NOT DETECTED Nasal Coronavir NL63 PCR NOT DETECTED Nasal Coronavir OC43 PCR NOT DETECTED Nasal Enterovir/Rhinovir PCR NOT DETECTED Nasal Influenza A H3 PCR DETECTED A Nasal Influenza B PCR NOT DETECTED Nasal Parainfluen 1 PCR NOT DETECTED Nasal Parainfluen 2 PCR NOT DETECTED Nasal Parainfluen 3 PCR NOT DETECTED Nasal Parainfluen 4 PCR NOT DETECTED Nasal RSV (PCR) NOT DETECTED Nasal B.pertussis DNA PCR NOT DETECTED Nasal C.pneumoniae (PCR) NOT DETECTED Shai Human Metapneumo PCR NOT DETECTED Nasal M.pneumoniae (PCR) NOT DETECTED Nasal SARS-CoV-2 (PCR) NOT DETECTED PD MEDICAL DECISION MAKING - ED course Complexity details: reviewed results, re-evaluated patient, considered differential, d/w patient ED course: Patient is well-appearing, nontoxic. Afebrile. No hypoxia. No respiratory distress. Given a nebulizer treatment here. She is a candidate for antiviral therapy, will prescribe Xofluza. Will prescribe cough medication and albuterol for home as well. Patient counseled regarding signs and symptoms for which I believe and urgent re-evaluation would be necessary. Patient with good understanding of and agreement to plan and is comfortable going home at this time This document was made in part using voice recognition software. While efforts are made to proofread this document, sound alike and grammatical errors may occur. Departure - Departure Disposition: Home, Self Care Clinical Impression: Influenza A Condition: Good Instructions: ED Flu Follow-Up: Citlalli Morales ARNP [Primary Care Provider] - As Needed Prescriptions: Albuterol Sulf [Ventolin Hfa Inhaler] 1 - 2 puffs INH Q4HR PRN #1 each PRN Reason: Shortness Of Air/Wheezing Benzonatate [Tessalon] 200 mg PO TID PRN #30 cap PRN Reason: Cough Baloxavir Marboxil [Xofluza] 80 mg PO ONCE #1 tablet Comments: Your prescriptions were sent to [facility] in [place]. You have tested positive for influenza A today. Please use the inhaler as prescribed. The Xofluza should help to lessen the duration of your illness. Drink plenty of fluids.
[2022-03-09 13:46] VITALS: BP 128/86
== END 2022-03-09 13:45 | disposition home or self-care (01) ==
LOC: SUPCPDRO 11:05 → ED 11:05
DX: J10.1 Influenza due to other identified influenza virus with other respiratory manifestations (principal); Z20.822 Contact with and (suspected) exposure to COVID-19
CPT/HCPCS: 87633; 94640; 99282; 99283

== ENCOUNTER 2022-06-16 11:20 | Emergency (ER) | payer MEDICAID ==
[2022-06-16] MEDS ORDERED: SODIUM CHLORIDE 0.9% 1,000 ML IV STA ×3 (11:47→22:16)
[2022-06-16] MEDS ORDERED: MORPHINE 2 MG/ML CARPUJECT IVP STA ×2 (11:47→17:16)
[2022-06-16 11:48] LABS: BASOPHILS % (AUTO) 0.3 %; EOSINOPHILS % (AUTO) 0.1 %; HCT - HEMATOCRIT 43.4 % (37.0-47.0); HGB - HEMOGLOBIN 13.9 g/dL (12.0-16.0); LYMPHOCYTES # (AUTO) 0.6 10^3/uL (1.5-3.5); LYMPHOCYTES % (AUTO) 5.8 %; MEAN CORPUSCULAR HEMOGLOBIN 26.6 pg (27.0-31.0); MEAN PLATELET VOLUME 9.8 fL (7.9-10.8); MONOCYTES # (AUTO) 0.7 10^3/uL (0.0-1.0); MONOCYTES % (AUTO) 6.4 %; NEUTROPHILS # (AUTO) 8.9 10^3/uL (1.5-6.6); NEUTROPHILS % (AUTO) 87.2 %; PLT - PLATELET COUNT 368 10^3/uL (130-450); RED BLOOD COUNT 5.23 10^6/uL (4.20-5.40); RED CELL DISTRIBUTION WIDTH 13.7 % (12.0-15.0); WHITE BLOOD COUNT 10.2 x10^3/uL (4.8-10.8)
[2022-06-16 12:05] LABS: ALBUMIN 4.1 g/dL (3.2-5.5); ALBUMIN/GLOBULIN RATIO 1.1 (1.0-2.2); BILIRUBIN,TOTAL 1.4 mg/dL (0.2-1.0); CALCIUM 9.3 mg/dL (8.5-10.3); CREATININE 0.8 mg/dL (0.4-1.0); POTASSIUM 3.8 mmol/L (3.5-5.0)
--- NOTE | 2022-06-16 12:11 | ED Physician Documentation ---
PD HPI ABD PAIN - Stated complaint Stated Complaint: ABD PX - Chief complaint Chief Complaint: Abd Pain - History obtained from History obtained from: Patient - Additional information Additional information: Patient is a 36-year-old female with no significant past medical history presenting for evaluation of lower abdominal pain that started around midnight. She describes it as a cramping twisting sensation. She has associated nausea and vomiting and is having difficulty keeping anything down. Nothing makes the pain better or worse. It does not radiate elsewhere. She denies fever, chest pain, difficulty breathing. She was seen at the walk-in clinic and directed to the emergency department.She denies concerns for . She denies prior abdominal surgeries. She denies dysuria, hematuria, vaginal bleeding or discharge. Review of Systems Constitutional: denies: Fever Cardiac: denies: Chest pain / pressure Respiratory: denies: Dyspnea GI: reports: Abdominal Pain, Nausea, Vomiting. 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 - Present Medications Home Medications: Ambulatory Orders Medication Instructions Recorded Confirmed Cetirizine [ZyrTEC] 10 mg PO BID #15 tablet 09/15/21 HYDROcod/ACETAM 5/325 [[place] 5/325] 1 ea PO Q6H PRN #10 tablet 09/15/21 Naproxen 250 mg PO TID 7 Days #20 tablet 09/15/21 cephALEXin [Keflex] 500 mg PO TID #20 cap 09/15/21 Albuterol Sulf [Ventolin Hfa 1 - 2 puffs INH Q4HR PRN #1 each 03/09/22 Inhaler] Baloxavir Marboxil [Xofluza] 80 mg PO ONCE #1 tablet 03/09/22 Benzonatate [Tessalon] 200 mg PO TID PRN #30 cap 03/09/22 - Allergies Allergies/Adverse Reactions: Allergies Allergy/AdvReac Type Severity Reaction Status Date / Time Sulfa (Sulfonamide Allergy Unknown Verified 03/09/22 11:14 Antibiotics) sumatriptan [From Imitrex] Allergy Headache Verified 06/16/22 11:28 ondansetron HCl * AdvReac Intermediate migraine Verified 03/09/22 11:14 [From Zofran] orajell Allergy Edema Uncoded 03/09/22 11:14 - Social History Does the pt smoke?: No Smoking Status: Never smoker Does the pt drink ETOH?: No Does the pt have substance abuse?: No - Immunizations Immunizations are current?: Yes Immunizations: TDAP >10years/unknown - POLST Patient has POLST: No PD ED PE NORMAL - General General: Alert and oriented X 3, No acute distress, Well developed/nourished - HEENT HEENT: Atraumatic - Neck Neck: Supple, no meningeal sign - Cardiac Cardiac: Other (Tachycardic, regular rhythm) - Respiratory Respiratory: No respiratory distress, Clear bilaterally - Abdomen Abdomen: Normal bowel sounds, Soft, Non distended, Other (Generalized abdominal tenderness to palpation, or worse in the right lower quadrant; No rebound, no guarding, no mass or hernia) - Derm Derm: Warm and dry - Neuro Neuro: Normal speech Results - Vitals Vitals: Vital Signs - 24 hr 06/16/22 06/16/22 06/16/22 11:25 12:18 14:11 Temperature 37.2 C Heart Rate 126 H 108 H 117 H Respiratory 20 18 15 Rate Blood Pressure 124/80 137/77 H O2 Saturation 97 97 100 06/16/22 16:27 Temperature Heart Rate 113 H Respiratory 20 Rate Blood Pressure 128/68 O2 Saturation 100 Oxygen O2 Source Room air - EKG (time done) 1301 Rate: Rate (enter#) (112) Rhythm: Sinus tachycardia [place]: Normal Ischemia: No: ST elevation c/w ischemia Compare to prior EKG: Unchanged from prior EKG - Labs Labs: Laboratory Tests 06/16/22 06/16/22 06/16/22 11:43 11:43 11:43 WBC 10.2 RBC 5.23 Hgb 13.9 Hct 43.4 MCV 83.0 MCH 26.6 L MCHC 32.0 RDW 13.7 Plt Count 368 MPV 9.8 Neut # (Auto) 8.9 H Lymph # (Auto) 0.6 L Henry # (Auto) 0.7 Eos # (Auto) 0.0 Baso # (Auto) 0.0 Absolute Nucleated RBC 0.00 Nucleated RBC % 0.0 D-Dimer Sodium 137 Potassium 3.8 Chloride 103 Carbon Dioxide 25 Anion Gap 9.0 BUN 15 Creatinine 0.8 Estimated GFR (MDRD) 80 L Glucose 119 H Lactic Acid 1.3 Calcium 9.3 Total Bilirubin 1.4 H AST 16 ALT 14 Alkaline Phosphatase 44 Total Protein 8.0 Albumin 4.1 Globulin 3.9 Albumin/Globulin Ratio 1.1 Lipase 27 TSH Serum HCG, Qual Urine Color Urine Clarity Urine pH Ur Specific [place] Urine Protein Urine Glucose (UA) Urine Ketones Urine Occult Blood Urine Nitrite Urine Bilirubin Urine Urobilinogen Ur Leukocyte Esterase Urine RBC Urine WBC Ur Squamous Epith Cells Urine Bacteria Ur Microscopic Review Urine Culture Comments 06/16/22 06/16/22 06/16/22 11:43 14:12 16:34 WBC RBC Hgb Hct MCV MCH MCHC RDW Plt Count MPV Neut # (Auto) Lymph # (Auto) Henry # (Auto) Eos # (Auto) Baso # (Auto) Absolute Nucleated RBC Nucleated RBC % D-Dimer Sodium Potassium Chloride Carbon Dioxide Anion Gap BUN Creatinine Estimated GFR (MDRD) Glucose Lactic Acid Calcium Total Bilirubin AST ALT Alkaline Phosphatase Total Protein Albumin Globulin Albumin/Globulin Ratio Lipase TSH 1.74 Serum HCG, Qual NEGATIVE Urine Color YELLOW Urine Clarity CLEAR Urine pH 7.0 Ur Specific [place] <=1.005 Urine Protein NEGATIVE Urine Glucose (UA) NEGATIVE Urine Ketones TRACE Urine Occult Blood SMALL H Urine Nitrite NEGATIVE Urine Bilirubin NEGATIVE Urine Urobilinogen 0.2 (NORMAL) Ur Leukocyte Esterase NEGATIVE Urine RBC 0-5 Urine WBC 0-3 Ur Squamous Epith Cells RARE Squamous Urine Bacteria Rare Ur Microscopic Review INDICATED Urine Culture Comments NOT INDICATED 06/16/22 16:34 WBC RBC Hgb Hct MCV MCH MCHC RDW Plt Count MPV Neut # (Auto) Lymph # (Auto) Henry # (Auto) Eos # (Auto) Baso # (Auto) Absolute Nucleated RBC Nucleated RBC % D-Dimer 618.6 H Sodium Potassium Chloride Carbon Dioxide Anion Gap BUN Creatinine Estimated GFR (MDRD) Glucose Lactic Acid Calcium Total Bilirubin AST ALT Alkaline Phosphatase Total Protein Albumin Globulin Albumin/Globulin Ratio Lipase TSH Serum HCG, Qual Urine Color Urine Clarity Urine pH Ur Specific [place] Urine Protein Urine Glucose (UA) Urine Ketones Urine Occult Blood Urine Nitrite Urine Bilirubin Urine Urobilinogen Ur Leukocyte Esterase Urine RBC Urine WBC Ur Squamous Epith Cells Urine Bacteria Ur Microscopic Review Urine Culture Comments PD Medical Decision Making - ED course Complexity details: reviewed results, re-evaluated patient, d/w patient ED course: Presenting for evaluation of abdominal pain that is been present for approximately 12 hours with worse pain in the periumbilical and right lower quadrant region.She has associated nausea and vomiting. She is tachycardic in triage with an EKG demonstrating a normal sinus rhythm. Her labs are reviewed and unremarkable including a lactic acid. A CT scan was obtained and does not show any acute abnormalities.Her urine is also negative for infection. She received IV narcotics as well as IV fluids.Her heart rate was noted to remain elevated despite pain control and IV fluids. On further evaluation she does report feeling some shortness of breath recently. She has a remote history of lymphoma. A D-dimer was obtained which is elevated. A CT angio to evaluate for pulmonary embolism was obtained. This is pending at shift change and pt signed out to Dr. Harding. If CT angio is negative for PE and patient is still tachycardic I would consider observation in the hospital for further Hydration and telemetry. 1618 - Patient has remained tachycardic throughout her ED course despite IV fluids. Her CT abdomen and pelvis was unremarkable and her abdominal exam is benign. She has requested nausea medications and did receive p.o. Reglan as she is allergic to Zofran.On further evaluation of her tachycardia she states that she does feel some shortness of air and feels a little bit more labored with her breathing. Her lung sounds are clear. She has a remote history of lymphoma 7- 1/2 years ago.She denies a history of PE or DVT. Will order a D-dimer, patient aware of need for further evaluation.
[2022-06-16] MEDS ORDERED: iohexoL-300 100 ML VIAL ONE ×2 (12:25→17:17)
[2022-06-16 13:07] LABS: HCG,QUALITATIVE BLOOD NEGATIVE
--- NOTE | 2022-06-16 13:16 | CT Report ---
PROCEDURE: ABDOMEN/PELVIS W INDICATIONS: lower abd pain R>L CONTRAST: Omni 300 100ml TECHNIQUE: After the administration of oral contrast, 5 mm thick sections acquired from the diaphragms to the sy mphysis. 5 mm thick coronal and sagittal reformats were acquired. For radiation dose reduction, the following was used: automated exposure control, adjustment of mA and/or kV according to patient siz e. COMPARISON: None. FINDINGS: Image quality: Excellent. ABDOMEN: Lung bases: Lung bases are clear. Heart size is normal. Solid organs: Liver and spleen are normal in size and enhancement. Gallbladder is unremarkable. Bi liary system is non dilated. Pancreas enhances normally. No adrenal nodules. Kidneys demonstrate n ormal size and enhancement, without hydronephrosis. Peritoneum and bowel: Bowel loops demonstrate normal wall thickness and caliber. No free fluid or a ir. Nodes and vessels: No retroperitoneal or mesenteric adenopathy by size criteria. Aorta and inferior vena cava are normal in size. Miscellaneous: No ventral hernias. PELVIS: Genitourinary: Bladder wall thickness is normal. Miscellaneous: No inguinal hernias or adenopathy. Bones: No suspicious bony lesions. No vertebral body compression fractures. IMPRESSION: No acute abnormality. Reviewed by: Efren Simpson on 06/16/2022 1:15 PM PST Approved by: Efren iSmpson on 06/16/2022 1:15 PM PST Station ID: [id number]
[2022-06-16 14:21] LABS: BILIRUBIN,URINE NEGATIVE (NEGATIVE); GLUCOSE, URINE (UA) NEGATIVE (NEGATIVE); KETONES,URINE (UA) TRACE mg/dL (NEGATIVE); LEUKOCYTE ESTERASE, URINE NEGATIVE (NEGATIVE); NITRITE,URINE NEGATIVE (NEGATIVE); OCCULT BLOOD,URINE SMALL (NEGATIVE); PROTEIN,URINE NEGATIVE (NEGATIVE); UROBILINOGEN,URINE 0.2 (NORMAL) E.U./dL (NORMAL)
[2022-06-16 14:22] LABS: CLARITY,URINE CLEAR (CLEAR)
[2022-06-16] MEDS ORDERED: KETOROLAC 30 MG/ML VIAL IVP STA (14:27)
[2022-06-16 14:33] LABS: BACTERIA,URINE Rare /HPF (None Seen); RBC,URINE 0-5 /HPF (0-5); SQUAMOUS EPITHELIAL CELL,UR RARE Squamous (<= Few); WBC,URINE 0-3 /HPF (0-5)
[2022-06-16] MEDS ORDERED: METOCLOPRAMIDE 10 MG TABLET PO STA (15:52)
--- NOTE | 2022-06-16 16:57 | XRAY Report ---
PROCEDURE: Chest 1 View X-Ray INDICATIONS: SOA TECHNIQUE: One view of the chest was acquired. COMPARISON: Lung bases on CT abdomen and pelvis 06/16/2022. FINDINGS: Surgical changes and devices: None. Lungs and pleura: No pleural effusions or pneumothorax. Lungs are clear. Mediastinum: Mediastinal contours appear normal. Heart size is normal. Bones and chest wall: No suspicious bony lesions. Overlying soft tissues appear unremarkable. IMPRESSION: No acute cardiopulmonary abnormality. Reviewed by: Jc Bedolla MD on 06/16/2022 4:55 PM PST Approved by: Jc Bedolla MD on 06/16/2022 4:55 PM PST Station ID: [id number]
--- NOTE | 2022-06-16 18:10 | CT Report ---
PROCEDURE: ANGIO CHEST W/WO INDICATIONS: SOA/tachy/rule out PE CONTRAST: Omni 300 100ml TECHNIQUE: After the administration of intravenous contrast, 2 mm axial images were acquired from the pulmonary apices to the posterior costophrenic angles during the arterial phase. In addition, 1 mm lung kernel and 5 mm soft tissue kernel reconstructions were performed. 3-dimensional coronal oblique maximum int ensity projection (MIP) reformats, 8 mm axial MIP, and 5 mm coronal and sagittal MPR reformats were t hen performed through the thorax. For radiation dose reduction, the following was used: automated exp osure control, adjustment of mA and/or kV according to patient size. COMPARISON: CXR 06/16/2022. FINDINGS: Image quality: Excellent. Pulmonary arteries: Pulmonary arteries are normal in size, and demonstrate no intraluminal filling d efects to suggest central pulmonary embolism. Lungs and pleura: Lungs are clear. No pleural effusions or pneumothorax. Central and peripheral ai rways are patent. Mediastinum: Heart size is normal, without pericardial effusion. No mediastinal or hilar adenopathy . Thoracic aorta is normal in caliber and enhancement. Esophagus is normal in caliber, without hiat al hernia. Bones and chest wall: No suspicious bony lesions. Ribs and thoracic spine appear intact throughout. No axillary or supraclavicular adenopathy. The thyroid is normal in size and there are no incident al findings. Abdomen: Visualized upper abdominal solid organs appear normal in the early arterial phase of enhanc ement. IMPRESSION: 1. No pulmonary embolism. 2. No acute airspace opacity. No pleural effusion. Reviewed by: Jc Bedolla MD on 06/16/2022 6:08 PM PST Approved by: Jc Bedolla MD on 06/16/2022 6:08 PM PST Station ID: [id number]
[2022-06-16 18:16] LABS: MUDS CUTOFF CONCENTRATIONS CUTOFF CONC BELOW:
[2022-06-16 18:30] LABS: AMPHETAMINE SCREEN,URINE NEGATIVE (NEGATIVE); BARBITURATE SCREEN,UR NEGATIVE (NEGATIVE); BENZODIAZEPINES SCREEN, URINE NEGATIVE (NEGATIVE); COCAINE SCREEN URINE NEGATIVE (NEGATIVE); METHADONE SCREEN, URINE NEGATIVE (NEGATIVE); METHAMPHETAMINES SCREEN, URINE NEGATIVE (NEGATIVE); OPIATE SCREEN, URINE POSITIVE (NEGATIVE); OXYCODONE SCREEN, URINE NEGATIVE (NEGATIVE); PROPOXYPHENE SCREEN, URINE NEGATIVE (NEGATIVE); THC CANNABINOID SCREEN, URINE NEGATIVE (NEGATIVE); TRICYCLIC ANTIDEPRESSANT,URINE NEGATIVE (NEGATIVE)
[2022-06-16] MEDS ORDERED: IPRATROPIUM/ALBUTEROL 3 ML NEB INH STA (19:59)
[2022-06-16] MEDS ORDERED: SUCRALFATE 1 GM/10 ML UDC PO STA (22:15)
[2022-06-16] MEDS ORDERED: FAMOTIDINE 20 MG TABLET PO STA (22:15)
[2022-06-16] MEDS ORDERED: MAG HYDROX/AL HYDROX/SIMETH 30 ML UDC PO STA (22:15)
[2022-06-16 22:55] VITALS: BP 112/48
--- NOTE | 2022-06-16 22:55 | ED Physician Documentation ---
ED Addendum - Addendum Addendum: 06/16/22 22:55 I received signout on this patient from Dr. Moore. She was awaiting a CT pulmonary angiogram. This is negative for acute PE. The patient is having intermittent left upper quadrant abdominal pain on my evaluation. She feels better after GI cocktail. No significant lab findings. CT abdomen pelvis is unremarkable. She did have diminished breath sounds and some wheezing on my exam so was given a nebulizer treatment with albuterol. She states that the shortness of breath resolved with this. She has used inhalers in the past. We will prescribe an inhaler for home. Her heart rate decreased as well down to approximately 105-110. On prior ED visit she had been in this range. I did look at her outpatient medical record and appears that her heart rate has been 99-101 on several visits there as well. Suspect that she has chronic tachycardia. Patient is fully asymptomatic with this. Does not feel any palpitations. Recommend that she follow-up with her doctor for further evaluation of her tachycardia. Patient has had ER visits in the past with heart rates up into the 120s and 130s. Patient counseled regarding signs and symptoms for which I believe and urgent re-evaluation would be necessary. Patient with good understanding of and agreement to plan and is comfortable going home at this time This document was made in part using voice recognition software. While efforts are made to proofread this document, sound alike and grammatical errors may occur. Departure - Departure Disposition: 01 Home, Self Care Clinical Impression: Tachycardia Abdominal pain Qualifiers: Abdominal location: epigastric Qualified Code(s): R10.13 - Epigastric pain Dyspnea Qualifiers: Dyspnea type: unspecified Qualified Code(s): R06.00 - Dyspnea, unspecified Condition: Good Instructions: ED Dyspnea Shortness of Breath, ED Abdominal Pain Female Non- Specific Abdominal Pain, ED Gastritis Follow-Up: Citlalli Morales ARNP [Primary Care Provider] - Within 1 week Prescriptions: Albuterol Sulf [Ventolin Hfa Inhaler] 1 - 2 puffs INH Q4HR PRN #1 each PRN Reason: Shortness Of Air/Wheezing Esomeprazole Magnesium [Nexium] 40 mg PO DAILY #30 cap Famotidine [Pepcid] 20 mg PO BID #60 tablet Comments: Please follow-up with your doctor for further care. Please return if you worsen. Your prescriptions were sent to [facility] in [place]. We will treat you for GERD. You also had some wheezing and felt better after nebulizer treatment so we will try you on albuterol. You do appear to have a high heart rate usually, please follow-up with your doctor for further evaluation of this. Forms: Activity restrictions
== END 2022-06-16 23:13 | disposition home or self-care (01) ==
LOC: ED 11:20
DX: R10.13 Epigastric pain (principal); R06.00 Dyspnea, unspecified; R00.0 Tachycardia, unspecified
CPT/HCPCS: 36415; 71045; 71275; 74177; 80053; 80306; 81001; 83605; 83690; 84443; 84703; 85025; 85379; 93005; 94640; 96361; 96374; 96375; 96376; 99284; A9270; 81003; 87086